=== PATIENT | female | born 1985 | race Two or more races ===

== ENCOUNTER 2017-08-26 22:45 | Emergency (ER) | payer SELFPAY ==
--- NOTE | 2017-08-26 23:22 | ER Report ---
History and Physical Time Seen By MD: 23:02 HPI/ROS CHIEF COMPLAINT: anxiety, depression HISTORY OF PRESENT ILLNESS: This is a 32 year old female. She has had some depressed mood off and on and occasionally has some anxiety as well. Tonight, she was having a very difficult time. She just started her period as well and everything seemed worse tonight. She had a feeling of wanting to cut her arms, which has not happened before. She does not feel suicidal. She is here in [place] alone, her family lives in [place], no support here. She works and then goes home. She has no real support or good friends. She does not feel like she wants to or need to be admitted to behavioral health. She would like to work on getting into an outpatient counseling office for further help. Allergies: Coded Allergies: No Known Drug Allergies (Unverified , 08/26/17) Home Meds Active Scripts Lorazepam (ATIVAN) 0.5 Mg Tablet, 0.25 MG PO Q4-6H Y for ANXIETY, #8 TAB 0 Refills Prov:SOFÍA KRUEGER MD 08/26/17 Reviewed Nurses Notes: Yes Constitutional Vital Sign - Last 24 Hours 08/26/17 08/27/17 22:52 00:06 Temp 98.4 Pulse 76 85 Resp 20 16 B/P (MAP) 124/79 132/82 (99) Pulse Ox 95 96 O2 Delivery Room Air Room Air Physical Exam Alert, tearful at times, but mainly composed. Appearance is neat. She does make eye contact. Communication difficult as done through the spanish interpreter/translator line. No suicidal thought. No thought of harming others. Cannot evaluate speech rate or pattern, but content seems normal. Medical Decision Making ED Course/Re-evaluation ED Course Discussion of options for outpatient treatment by geropsychologist. No further concerns and no indications that she needs to stay in the hospital. Ativan given and discussed with her by nursing staff. Decision to Disposition Date: Aug 26, 2017 Decision to Disposition Time: 23:37 Depart Departure Latest Vital Signs Vital Signs Date Time Temp Pulse Resp B/P (MAP) Pulse Ox O2 Delivery O2 Flow Rate FiO2 08/27/17 00:06 85 16 132/82 (99) 96 Room Air 08/26/17 22:52 98.4 Impression: Primary Impression: Situational depression Additional Impression: Anxiety reaction Condition: Improved Disposition: HOME OR SELF-CARE New Scripts Lorazepam (ATIVAN) 0.5 Mg Tablet 0.25 MG PO Q4-6H Y for ANXIETY, #8 TAB 0 Refills Prov: SOFÍA KRUEGER MD 08/26/17 Patient Instructions: Anxiety (ED) Additional Instructions: Ativan 0.5mg tablets, take 1/2 tablet every 6 hours as needed for anxiety. Follow-up with [facility]. You can call them on Monday to schedule an appointment. Problem Qualifiers SOFÍA KRUEGER MD Aug 26, 2017 23:21
[2017-08-26] MEDS ORDERED: LORA-1455 PO (23:50)
[2017-08-26] MEDS ORDERED: LORazepam 0.5 MG TAB PO ONE (23:55)
[2017-08-27 00:06] VITALS: BP 132/82
== END 2017-08-27 00:25 | disposition home or self-care (01) ==
LOC: ER 23:11
DX: F32.9 Major depressive disorder, single episode, unspecified (principal); F41.9 Anxiety disorder, unspecified
CPT/HCPCS: 99283

== ENCOUNTER → 2018-01-03 | Outpatient (CLI) | payer SELFPAY ==
[~2018-01-03] MED LIST: LORA-1455 PO
--- NOTE | 2018-01-03 16:40 | RADIOLOGY IMAGING REPORT ---
FACILITY: [facility] PATIENT NAME: Mariama Trujillo : 1985 MR: [id number] V: [id number] EXAM DATE: ORDERING PHYSICIAN: CORAZON CAPPS TECHNOLOGIST: Location: [facility] Patient: Mariama Trujillo : 1985 Visit/Account:[id number] Date of Sevice: 01/03/2018 PELVIC ultrasound HISTORY: Menorrhagia TECHNIQUE: Transabdominal and transvaginal ultrasound pelvis. COMPARISON: None. FINDINGS: Uterus: Retroflexed; 7.4 cm length x 4.7 cm AP x 6.7 cm transverse. Myometrium: Unremarkable. Endometrium: Unremarkable; double thickness 7.1 mm. Cervix: Grossly negative. Ovaries: Right - 3.4 x 2.7 x 2.5 cm Left - 2.9 x 2.4 x 2.7 cm Blood flow is documented in each ovary by duplex Doppler ultrasound. Adnexa: Grossly unremarkable. Free pelvic fluid: Mild. IMPRESSION: Mild amount of free pelvic fluid Retroflexed uterus otherwise unremarkable pelvic ultrasound Report Dictated By: Kierra Miller MD at 01/03/2018 4:33 PM Report E-Signed By: Kierra Miller MD at 01/03/2018 4:35 PM WSN:[email or web address]
== END ==
LOC: US 01:35
PROVIDERS: ATTEND Nurse Practitioner Family
DX: N92.1 Excessive and frequent menstruation with irregular cycle (principal); R10.2 Pelvic and perineal pain
CPT/HCPCS: 76856